=== PATIENT | male | born 1985 | race Two or more races ===

== ENCOUNTER 2017-02-08 16:14 | Emergency (ER) | payer SELFPAY ==
[~2017-02-08] VITALS: Ht 165.1 cm; Wt 67.1 kg
--- NOTE | ~2017-02-08 | CT4 ---
[facility] A Service of [facility] / [facility] RADIOLOGY TEXT RESULTS PATIENT: GILDA KHALIL LOCATION: [facility] : 85 UNIT #: [id number] AGE: [address]: Gabe Spence DO SEX: M ORDER DR: [id number] [facility] [place], [place] [address] [id number] E MR#: [id number] Acc #: [id number] NAME: GILDA KHALIL : 1985 SEX: M STUDY DATE/TIME: 02/08/2017 18:18 UNIT: [facility] ROOM: STUDY DESCRIPTION: CT Abd and Pelv Wo Cont Attending Physician: Gabe Spence D.O. Ordering Physician: Gabe Spence D.O. Primary Care Physician: No Primary Care Physician MEDICAL IMAGING REPORT This report is preliminary unless electronic signature is present EXAM CT abdomen and pelvis. INDICATION Right flank pain for [address] of the abdomen and pelvis without contrast. Coronal and sagittal reconstructions were obtained. This CT exam was performed with one or more of the following radiation dose reduction techniques: automatic exposure control, adjustment of mA and/or kV according to patient size, and iterative reconstruction. COMPARISON None available. FINDINGS ABDOMEN: There are bilateral renal calculi. There is a linear 1.1 x 0.5 x 0.4 cm calculus in the mid-right ureter resulting in moderate right hydronephrosis. There is mild right renal edema. No left hydronephrosis. The appendix is normal. The abdominal aorta is normal in caliber. Gallbladder is not distended. PELVIS: No pelvic mass. No enlarged pelvic or inguinal lymph nodes. No acute osseous abnormalities. There are pars defects at L5, however, no spondylolisthesis. IMPRESSION [facility] A Service of [facility] / [facility] RADIOLOGY TEXT RESULTS PATIENT: GILDA KHALIL LOCATION: [facility] : 85 UNIT #: [id number] AGE: [address]: Hottman,Gabe M DO SEX: M ORDER DR: 1. Large linear calculus in the mid-right ureter measuring up to 1.1 cm. This results in a moderate right hydronephrosis and mild right renal edema. 2. Bilateral nephrolithiasis. Dictated by... Jun Asencio M.D. THIS IS AN ELECTRONICALLY VERIFIED REPORT Jun Asencio M.D. at 02/09/2017 7:50 PM GALEN/sherrie TD: 02/09/2017 18:12 JOB #: [id number] MEDICAL IMAGING REPORT Page 1 of 1 COPY
[2017-02-08 17:54] LABS: BASOPHIL% 0.1 % (0-2.5); EOSINOPHIL# 0.1 X10e3 (0-0.7); EOSINOPHIL% 0.4 % (0.0-7.0); HEMATOCRIT 50.8 % (38.0-50.0); HEMOGLOBIN 17.1 gm/dL (13.0-16.0); LYMPHOCYTE% 7.4 % (17.0-45.0); MEAN CELL VOLUME 81.6 FL (83-96); MEAN CORPUSCULAR HEMOGLOBIN 27.5 PG (28-34); MEAN CORPUSCULAR HGB CONC 33.7 g/dL (30-36); MEAN PLATELET VOLUME 11.1 FL (6.5-11.5); MONOCYTE# 0.7 X10e3 (0-1.0); MONOCYTE% 4.8 % (3.0-12.0); NEUTROPHIL# 12.2 X10e3 (1.5-7.1); NEUTROPHIL% 87.3 % (40-75); PLATELET COUNT 100 X10e3 (140-420); RED BLOOD COUNT 6.23 X10e (3.90-5.60); RED CELL DISTRIBUTION WIDTH 13.7 % (11.0-15.5)
[2017-02-08 18:05] LABS: ALBUMIN SERUM 4.6 g/dL (3.5-5.0); BILIRUBIN, DIRECT 0.1 mg/dL (0.0-0.2); BILIRUBIN,INDIRECT 0.6 mg/dL (0.0-0.9); BILIRUBIN,TOTAL 0.7 mg/dL (0.2-2.0); BUN/CREATININE RATIO 10.76; CALCIUM SERUM 9.4 mg/dL (8.4-10.2); CREATININE SERUM 1.3 mg/dL (0.6-1.4); GLOM FILT RATE Estimated 72.7 mL/min (>60); POTASSIUM 3.5 mmol/L (3.5-5.1); PROTEIN TOTAL SERUM 7.9 g/dL (6.0-8.3)
[2017-02-08 18:18] LABS: DIFF IND NO
[2017-02-08 19:16] LABS: URINE SOURCE CLEAN CATCH
[2017-02-08 19:23] LABS: URINE APPEARANCE CLEAR; URINE BILIRUBIN NEG (NEG); URINE BLOOD 3+ (NEG); URINE COLOR YELLOW; URINE GLUCOSE NEG (NEG); URINE KETONE NEG (NEG); URINE LEUKOCYTE ESTERASE TRACE (NEG); URINE NITRATE NEG (NEG); URINE PH 6.5 (5-8); URINE PROTEIN TRACE (NEG); URINE SPECIFIC GRAVITY 1.015 (1.003-1.035); URINE UROBILINOGEN 0.2 MG/DL (NEG)
[2017-02-08 19:27] LABS: CULTURE INDICATED? YES; URBCS1 AUWI INNUM /[HPF] (0-2); URINE BACTERIA AUWI NEG (NEGATIVE); URINE SQUAMOUS EPITHELIAL CELL OCC /[HPF]
== END 2017-02-08 21:05 | disposition left against medical advice (07) ==
LOC: CED 16:14
PROVIDERS: Emergency Medicine
DX: N13.2 Hydronephrosis with renal and ureteral calculous obstruction (principal); F17.200 Nicotine dependence, unspecified, uncomplicated
CPT/HCPCS: 36415; 74176; 80048; 80076; 81003; 83690; 85025; 87086; 96361; 96374; 96375; 99285; J1170; J2405